=== PATIENT | male | born 1980 | race Caucasian/White ===

== ENCOUNTER → 2018-11-30 | Outpatient (CLI) | payer OTHER | END | disposition home or self-care (01) | LOC: CARD 12:15 | PROVIDERS: ATTEND Family Medicine | DX: R06.4 Hyperventilation (principal); G47.00 Insomnia, unspecified; G47.33 Obstructive sleep apnea (adult) (pediatric); Z89.611 Acquired absence of right leg above knee; Z79.899 Other long term (current) drug therapy; Z88.5 Allergy status to narcotic agent; Z88.6 Allergy status to analgesic agent; Z88.8 Allergy status to other drugs, medicaments and biological substances | CPT/HCPCS: 95819 ==